=== PATIENT | male | born 1975 | race Caucasian/White ===

== ENCOUNTER 2017-04-01 15:38 | Emergency (ER) | payer OTHER ==
[2017-04-01 16:02] VITALS: RESP 18
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
[2017-04-01] MEDS ORDERED: IBUPROFEN 600 MG TAB PO ONE (18:10)
[2017-04-01 18:28] VITALS: BP 108/62; PULSE 71; TEMP 98.2; O2SAT 95
== END 2017-04-01 18:20 | disposition home or self-care (01) ==
DX: S29.9XXA Unspecified injury of thorax, initial encounter (principal); S40.812A Abrasion of left upper arm, initial encounter; S80.812A Abrasion, left lower leg, initial encounter; V18.0XXA Pedal cycle driver injured in noncollision transport accident in nontraffic accident, initial encounter; Y92.410 Unspecified street and highway as the place of occurrence of the external cause; Y99.8 Other external cause status; Y93.55 Activity, bike riding

== ENCOUNTER 2018-11-14 16:14 | Emergency (ER) | payer OTHER ==
[2018-11-14 17:03] LABS: PLATELET COUNT 230 10^3/uL (150-400)
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
[2018-11-14] MEDS ORDERED: IOPAMIDOL (ISOVUE 370) 100 ML BTL IV ONE (18:16)
--- NOTE | 2018-11-14 19:50 | EDPHY ---
H & P Time Seen by Provider: 11/14/18 16:41 Smoking Status: Never smoked Constitutional: Initial Vital Signs Temperature (C) 36.4 C 11/14/18 16:17 Heart Rate 62 11/14/18 16:17 Respiratory Rate 16 11/14/18 16:17 Blood Pressure 128/74 H 11/14/18 16:17 O2 Sat (%) 99 11/14/18 16:17 O2 Delivery Mode Room Air Allergies/Adverse Reactions: No Known Allergies Allergy (Verified 04/01/17 15:57) Home Medications: Medication Instructions Recorded Zolpidem Tartrate [Ambien 10 mg] 2.5 - 10 mg PO HS PRN 04/05/14 methYLPHENIDATE HCL [Ritalin 10mg 10 mg PO BID@ PRN 04/01/17 (*)] Finasteride [Propecia] 1 mg PO DAILY 11/14/18 buPROPion XL [Wellbutrin Xl] 150 mg PO DAILY 11/14/18 Medical Decision Making - Diagnostics Imaging Results: Imaging Impressions Chest X-Ray 11/14/18 16:42 Impression: Small biapical pneumothoraces. Findings were discussed with Maddy Carlson MD at 17:04, on 11/14/2018. Chest/Thorax CTA 11/14/18 18:05 Impression: 1. There is no CT evidence for pulmonary artery thromboembolic disease. 2. Small biapical pneumothoraces. There is no localized bleb identified. 3. Trace pleural effusions, with compressive subsegmental atelectasis at the posterior costophrenic angles. Findings were discussed with Maddy Carlson MD at 19:02, on 11/14/2018. - Data Points Laboratory Results: Laboratory Results 11/14/18 16:50 11/14/18 16:50 11/14/18 11/14/18 11/14/18 16:59 16:50 16:50 WBC RBC Hgb Hct MCV MCH MCHC RDW Plt Count MPV Neut % (Auto) Lymph % (Auto) [place] % (Auto) Eos % (Auto) Baso % (Auto) Nucleat RBC Rel Count Absolute Neuts (auto) Absolute Lymphs (auto) Absolute Monos (auto) Absolute Eos (auto) Absolute Basos (auto) Absolute Nucleated RBC Immature Gran % Immature Gran # D-Dimer < 0.27 ug/mLFEU ug/mLFEU (0.00-0.50) Sodium 140 mEq/L mEq/L (135-145) Potassium 4.0 mEq/L mEq/L (3.5-5.2) Chloride 104 mEq/L mEq/L (97-110) Carbon Dioxide 26 mEq/l mEq/l (22-31) Anion Gap 10 mEq/L mEq/L (6-14) BUN 21 mg/dL mg/dL (7-23) Creatinine 1.0 mg/dL mg/dL (0.7-1.3) Estimated GFR > 60 Glucose 88 mg/dL mg/dL (70-100) Calcium 9.6 mg/dL mg/dL (8.5-10.4) POC Troponin I 0.01 ng/mL ng/mL (0.00-0.08) 11/14/18 16:50 WBC 5.70 10^3/uL 10^3/uL (3.80-9.50) RBC 5.20 10^6/uL 10^6/uL (4.40-6.38) Hgb 15.8 g/dL g/dL (13.7-17.5) Hct 46.0 % % (40.0-51.0) MCV 88.5 fL fL (81.5-99.8) MCH 30.4 pg pg (27.9-34.1) MCHC 34.3 g/dL g/dL (32.4-36.7) RDW 12.9 % % (11.5-15.2) Plt Count 230 10^3/uL 10^3/uL (150-400) MPV 9.8 fL fL (8.7-11.7) Neut % (Auto) 61.4 % % (39.3-74.2) Lymph % (Auto) 30.4 % % (15.0-45.0) Canyon % (Auto) 5.6 % % (4.5-13.0) Eos % (Auto) 2.1 % % (0.6-7.6) Baso % (Auto) 0.5 % % (0.3-1.7) Nucleat RBC Rel Count 0.0 % % (0.0-0.2) Absolute Neuts (auto) 3.50 10^3/uL 10^3/uL (1.70-6.50) Absolute Lymphs (auto) 1.73 10^3/uL 10^3/uL (1.00-3.00) Absolute Monos (auto) 0.32 10^3/uL 10^3/uL (0.30-0.80) Absolute Eos (auto) 0.12 10^3/uL 10^3/uL (0.03-0.40) Absolute Basos (auto) 0.03 10^3/uL 10^3/uL (0.02-0.10) Absolute Nucleated RBC 0.00 10^3/uL 10^3/uL (0-0.01) Immature Gran % 0.0 % % (0.0-1.1) Immature Gran # 0.00 10^3/uL 10^3/uL (0.00-0.10) D-Dimer Sodium Potassium Chloride Carbon Dioxide Anion Gap BUN Creatinine Estimated GFR Glucose Calcium POC Troponin I Point of Care Test Results: Chemistry 11/14/18 16:59 POC Troponin I 0.01 ng/mL ng/mL (0.00-0.08) Departure - Departure Disposition: Home, Routine, Self-Care Clinical Impression: Bilateral pneumothoraces, Chest pain Condition: Good
--- NOTE | 2018-11-14 19:52 | PDCONSULT ---
[employer] Work[employer] Note: 42 y/o male presents with 36 hour history of intermittent upper chest soreness. He was seen in the ED by Dr. Gaming and surgical consult was requested when he was found to have bilateral pneumothoraces on CXR and confirmed by CT. He reports mild upper chest discomfort off and on throughout the day. He denies recent URI, smoking, prior episodes of pneumothorax, recent travel, hemoptysis or sputum production. On the day before symptoms began he had dry needling performed for back pain. He has had this done before and this time felt that his therapist went higher on his chest than usual and that it hurt more during the procedure. He later in the day rode his stationary bike for an hour or so. PMH: NKDA non-smoker, minimal alcohol SH: with 2 children PE: O2 sat 96-97% RA P 60 BP 110/70 R 12 pleasant middle aged male in NAD HEENT: no JVD, trachea midline, no crepitus CVS: RRR without murmurs, rubs or Donald's crunch Lungs: clear equal breath sounds without wheezing, rales, or ronchi Abd: soft/non-tender CT and CXR reviewed: minimal bilateral apical pneumothorax, no apical or superior segmental blebs, no mass or pneumatocele, no mediastinal air, no pleural effusion or infiltrate, no adenopathy IMP: bilateral pneumothorax, likely from procedural injury to the parietal and visceral pleura Rec: We discussed admission for observation or outpatient management. Given the mechanism of injury (small diameter tapered solid needle) the lung injury should have already sealed and the small air pockets will reabsorb on their own over time. I would recommend he follow up tomorrow for a CXR and he and his are comfortable with outpatient management. I recommended no air travel or vigorous exercise for the next 2 weeks. I gave him my contact information and will be happy to follow him as an outpatient. Karena Melendez MD, FACS
[2018-11-14 20:11] VITALS: BP 116/70
--- NOTE | 2018-11-16 16:31 | CPEKG ---
Test Reason : OPEN Blood Pressure : / mmHG Vent. Rate : 056 BPM Atrial Rate : 054 BPM P-R Int : 152 ms QRS Dur : 081 ms QT Int : 451 ms P-R-T Axes : 078 080 059 degrees QTc Int : [address] elev, probable normal early repol pattern Confirmed by Juan Manuel Mendenhall ([id number]) on 11/16/2018 4:30:36 PM Referred By: Maddy Carlson Confirmed By:Juan Manuel Mendenhall
== END 2018-11-14 20:09 | disposition home or self-care (01) ==
LOC: UNDOADMOB 18:06
DX: J93.83 Other pneumothorax (principal)
CPT/HCPCS: 84484-ER; Q9967

== ENCOUNTER → 2018-11-15 | Outpatient (CLI) | payer OTHER | LOC: FIMAGING 09:46 | PROVIDERS: ATTEND Surgery | DX: J93.9 Pneumothorax, unspecified (principal) ==